=== PATIENT | female | born 1975 | race Two or more races ===

== ENCOUNTER 2022-11-13 11:24 | Outpatient (CLI) | payer OTHER | END 2022-11-13 11:27 | disposition home or self-care (01) | LOC: SONOGRAMA 11:24 | PROVIDERS: ATTEND Pathology Anatomic Pathology & Clinical Pathology | DX: D34 Benign neoplasm of thyroid gland (principal); E04.8 Other specified nontoxic goiter; E04.9 Nontoxic goiter, unspecified ==